=== PATIENT | male | born 1950 | race Caucasian/White ===

== ENCOUNTER 2017-11-22 23:08 | Emergency (ER) | payer MEDICARE, OTHER ==
[~2017-11-22] VITALS: Ht 180.3 cm; Wt 88.2 kg
[2017-11-22 23:16] VITALS: Ht 180.3 cm; Wt 88.2 kg
[2017-11-22] MEDS ORDERED: SYNTHROID88 MCG PO (23:17)
[2017-11-22] MEDS ORDERED: TOPROL XL100 MG PO (23:17)
[2017-11-23] MEDS ORDERED: PREDNISONE20 MG PO (00:26)
[2017-11-23 00:35] VITALS: BP 142/89
== END 2017-11-23 00:37 | disposition home or self-care (01) ==
LOC: D.ER 23:08
DX: T78.40XA Allergy, unspecified, initial encounter (principal); X58.XXXA Exposure to other specified factors, initial encounter; E07.9 Disorder of thyroid, unspecified; I10 Essential (primary) hypertension